=== PATIENT | male | born 1965 | race Caucasian/White ===

== ENCOUNTER 2020-11-11 22:25 | Emergency (ER) | payer MEDICAID, OTHER ==
[~2020-11-11] VITALS: Ht 180.3 cm; Wt 100.0 kg
[~2020-11-11 22:25] MED LIST: MECL-159 PO; NEOM10DR45 RIGHT EAR; NO HOME MEDS; ZOF4T PO
[2020-11-11] MEDS ORDERED: mupirocin 2% ointment 22GM TP STA (23:19)
[2020-11-11] MEDS ORDERED: CEPH500C5 PO (23:54)
[2020-11-12 00:05] VITALS: BP 125/93
== END 2020-11-12 00:07 | disposition home or self-care (01) ==
LOC: ER 22:26
DX: S80.811A Abrasion, right lower leg, initial encounter (principal); L03.115 Cellulitis of right lower limb; E78.00 Pure hypercholesterolemia, unspecified; Z72.89 Other problems related to lifestyle; Z79.2 Long term (current) use of antibiotics; Z79.899 Other long term (current) drug therapy; X58.XXXA Exposure to other specified factors, initial encounter; Y93.89 Activity, other specified; Y92.89 Other specified places as the place of occurrence of the external cause; Y99.8 Other external cause status
CPT/HCPCS: 99283